=== PATIENT | female | born 1935 | race Caucasian/White ===

== ENCOUNTER 2018-12-29 10:41 | Inpatient (IN) | payer OTHER, BC | END 2018-12-31 16:15 | disposition home or self-care (01) | LOC: TELE-CENTR 12-30 13:00 → ER 10:41 → TELE-CENTR 12-30 12:55 → TELE 23:56 | DX: I50.31 Acute diastolic (congestive) heart failure (principal); N39.0 Urinary tract infection, site not specified; E03.9 Hypothyroidism, unspecified; J44.9 Chronic obstructive pulmonary disease, unspecified ==